=== PATIENT | male | born 1950 | race Caucasian/White ===

== ENCOUNTER 2017-01-25 13:43 | Emergency (ER) | payer OTHER ==
[~2017-01-25] VITALS: Ht 175.3 cm; Wt 93.6 kg
[~2017-01-25 13:43] MED LIST: AMBIEN5 MG PO; CYCLOBENZAPRINE10 MG PO; DOCUSATE SODIU100 MG PO; OXAYDO5 MG PO; OXYCODONE HCL5 MG PO
[2017-01-25 15:09] LABS: EOSINOPHIL (%) 1.3 % (0-5); EOSINOPHIL COUNT 0.1 K/uL (0-0.3); HEMATOCRIT 43.6 % (38.0-50.0); IMMATURE GRANULOCYTE (%) 0.3 % (0.0-0.7); INSTRUMENT ABS NEUTROPHIL CT 4.2 K/uL; LYMPHOCYTE COUNT 2.4 K/uL (1.0-2.8); MCH 31.6 PG (29.0-34.0); MCHC 33.9 G/DL (30.0-36.0); MCV 93.2 FL (86-99); MEAN PLAT.VOLUME 9.4 uM^3 (9.0-12.4); MONOCYTE (%) 9.7 % (3-12); MONOCYTE COUNT 0.7 K/uL (0-0.8); NEUTROPHIL (%) 56.1 % (45-76); NEUTROPHIL COUNT 4.2 K/uL (1.8-6.4); PLATELET COUNT 264 K/uL (156-360); RBC DIS.WIDTH-CV 11.9 % (11.8-14.6); RBC DIS.WIDTH-SD 40.9 % (39-53); RED BLOOD COUNT 4.68 M/uL (4.00-5.50); WHITE BLOOD COUNT 7.5 K/uL (4.1-10.2)
[2017-01-25 15:18] LABS: CHLORIDE 109 mEq/L (99-109); POTASSIUM 4.1 mEq/L (3.7-5.4); SODIUM 144 mEq/L (136-147)
[2017-01-25 15:20] LABS: GLUCOSE 136 mg/dL (70-99)
[2017-01-25 15:22] LABS: ANION GAP 11 MEQ/L (2-14); TOTAL BILIRUBIN 0.3 mg/dL (0.0-1.0)
[2017-01-25 15:24] LABS: ALKALINE PHOSPHATASE 46 IU/L (3-129); GFR ESTIMATE (CALCULATED) 59 mL/min/
[2017-01-25 15:25] LABS: UREA NITROGEN (BUN) 11 mg/dL (9-23)
[2017-01-25 15:27] LABS: ADD MIUA? YES; BILIRUBIN NEGATIVE; BLOOD NEGATIVE; COLOR YELLOW ((YELLOW)); GLUCOSE (STRIP) 50; KETONES 5; LEUKOCYTES NEGATIVE; NITRITE NEGATIVE; PROTEIN (STRIP) 100; SPECIFIC GRAVITY 1.026 (1.000-1.030); UROBILINOGEN 0.2 MG/DL (0.2-1.0)
[2017-01-25 15:27] LABS: LIPASE 35 U/L (1.0-51.0)
[2017-01-25 15:45] LABS: CASTS PRESENT /LPF; HYALINE CASTS 0-5 /LPF; MUCUS 1+ /LPF
[2017-01-25 15:46] LABS: BACTERIA 1+ /HPF; EPITHELIAL CELLS RARE /HPF; RED BLOOD CELLS 0-5 /HPF (0-5); UCUL ADDED? NO; WHITE BLOOD CELLS 0-5 /HPF (0-5)
[2017-01-25 18:06] VITALS: BP 179/81
== END 2017-01-25 18:07 | disposition home or self-care (01) ==
LOC: EME 13:43
PROVIDERS: Emergency Medicine
DX: R10.32 Left lower quadrant pain (principal); Z90.5 Acquired absence of kidney; Z85.528 Personal history of other malignant neoplasm of kidney
CPT/HCPCS: 74177; 80053; 81003; 83690; 85025; 99281; 99285; J7030

== ENCOUNTER 2017-01-30 03:14 | Inpatient (IN) | payer OTHER ==
[~2017-01-30] VITALS: Ht 175.3 cm; Wt 95.4 kg
[2017-01-30 04:10] LABS: BASOPHIL COUNT 0.1 K/uL (0-0.1); EOSINOPHIL (%) 2.2 % (0-5); EOSINOPHIL COUNT 0.3 K/uL (0-0.3); HEMATOCRIT 40.6 % (38.0-50.0); IMMATURE GRANULOCYTE (%) 0.4 % (0.0-0.7); IMMATURE GRANULOCYTE COUNT 0.1 K/uL; INSTRUMENT ABS NEUTROPHIL CT 7.7 K/uL; LYMPHOCYTE COUNT 3.1 K/uL (1.0-2.8); MCH 32.2 PG (29.0-34.0); MCV 94.9 FL (86-99); MEAN PLAT.VOLUME 9.4 uM^3 (9.0-12.4); MONOCYTE (%) 13.1 % (3-12); MONOCYTE COUNT 1.7 K/uL (0-0.8); NEUTROPHIL (%) 59.6 % (45-76); NEUTROPHIL COUNT 7.7 K/uL (1.8-6.4); PLATELET COUNT 231 K/uL (156-360); RBC DIS.WIDTH-SD 41.9 % (39-53); RED BLOOD COUNT 4.28 M/uL (4.00-5.50)
[2017-01-30 04:11] LABS: WHITE BLOOD COUNT 12.9 K/uL (4.1-10.2)
[2017-01-30 04:19] LABS: CHLORIDE 106 mEq/L (99-109); POTASSIUM 3.6 mEq/L (3.7-5.4); SODIUM 139 mEq/L (136-147)
[2017-01-30 04:21] LABS: GLUCOSE 176 mg/dL (70-99)
[2017-01-30 04:23] LABS: ANION GAP 11 MEQ/L (2-14)
[2017-01-30 04:25] LABS: GFR ESTIMATE (CALCULATED) 59 mL/min/
[2017-01-30 04:26] LABS: UREA NITROGEN (BUN) 8 mg/dL (9-23)
[2017-01-30 07:30] VITALS: BP 182/86
[2017-01-30 08:25] LABS: ERTH.SED.RATE 53 MM/HR (0-20)
[2017-01-30] MEDS ORDERED: AMOX TR-K CLV1 EAC4 PO (11:50)
[2017-01-30 15:26] VITALS: BP 145/86
[2017-01-30 23:02] VITALS: BP 134/81
[2017-01-31 06:35] LABS: EOSINOPHIL (%) 3.9 % (0-5); EOSINOPHIL COUNT 0.4 K/uL (0-0.3); HEMATOCRIT 34.5 % (38.0-50.0); IMMATURE GRANULOCYTE (%) 0.2 % (0.0-0.7); INSTRUMENT ABS NEUTROPHIL CT 5.3 K/uL; LYMPHOCYTE COUNT 2.5 K/uL (1.0-2.8); MCH 31.8 PG (29.0-34.0); MCHC 33.6 G/DL (30.0-36.0); MCV 94.5 FL (86-99); MEAN PLAT.VOLUME 9.4 uM^3 (9.0-12.4); MONOCYTE (%) 10.8 % (3-12); NEUTROPHIL (%) 57.5 % (45-76); NEUTROPHIL COUNT 5.3 K/uL (1.8-6.4); PLATELET COUNT 194 K/uL (156-360); RBC DIS.WIDTH-CV 11.9 % (11.8-14.6); RBC DIS.WIDTH-SD 41.1 % (39-53); RED BLOOD COUNT 3.65 M/uL (4.00-5.50); WHITE BLOOD COUNT 9.2 K/uL (4.1-10.2)
[2017-01-31 06:56] LABS: ANION GAP 8 MEQ/L (2-14); C-REACTIVE PROTEIN 78.6 MG/L (0-10); CHLORIDE 114 MEQ/L (99-109); GFR ESTIMATE (CALCULATED) > 59 mL/min/; SAMPLE HEMOLYSIS CHECK 0; SAMPLE ICTERIC CHECK 0; SAMPLE LIPEMIA CHECK 0; SODIUM 145 MEQ/L (136-147); UREA NITROGEN (BUN) 6 mg/dL (9-23)
[2017-01-31 06:57] LABS: GLUCOSE 88 mg/dL (70-99)
[2017-01-31 08:29] VITALS: BP 180/95
[2017-01-31 09:30] VITALS: BP 144/80
[2017-01-31 22:46] VITALS: BP 135/63
[2017-02-01 07:48] VITALS: BP 140/81
[2017-02-01] MEDS ORDERED: AMOX TR-K CLV1 EAC4 PO (08:44)
[2017-02-01] MEDS ORDERED: MOTRIN600 MG PO (08:44)
== END 2017-02-01 10:10 | disposition home or self-care (01) | DRG 603 ==
LOC: EME 03:14 → 5EAST 05:48 → EDOF 05:48 → 5EAST 07:17
PROVIDERS: Emergency Medicine; Hospitalist
DX: L03.114 Cellulitis of left upper limb (principal); A28.0 Pasteurellosis; M65.142 Other infective (teno)synovitis, left hand; S61.452A Open bite of left hand, initial encounter; W55.01XA Bitten by cat, initial encounter; G89.29 Other chronic pain; Z90.5 Acquired absence of kidney; Z85.528 Personal history of other malignant neoplasm of kidney
CPT/HCPCS: 73130; 80048; 83605; 85025; 85651; 86140; 87040; 93005; 99281; 99285; J0295; J0690; J1650; J2270; J3010; J7030; J7050